=== PATIENT | male | born 2000 | race Caucasian/White ===

== ENCOUNTER 2019-06-24 12:14 | Outpatient (CLI) | payer OTHER | END 2019-06-24 23:59 | disposition home or self-care (01) | LOC: CFH 12:14 | PROVIDERS: ATTEND Family Medicine | DX: F07.81 Postconcussional syndrome (principal); R51 Headache; F32.9 Major depressive disorder, single episode, unspecified; R41.3 Other amnesia | CPT/HCPCS: 70551 ==